=== PATIENT | male | born 1980 | race Caucasian/White ===

== ENCOUNTER 2025-06-18 06:58 | Day surgery (SDC) | payer OTHER, SELFPAY ==
[2025-06-18] VITALS (12 sets, daily range): BP systolic 128–148; BP diastolic 81–103; PULSE 50–78; RESP 12–16; TEMP 36.2–37; O2SAT 95–100; BMI 25.0
[2025-06-18] MEDS: LACTATED RINGERS 1000 ML 1,000 ML 35 ML IV (08:01)
[2025-06-18] MEDS: SODIUM CHLORIDE 0.9 % (FLUSH) 10 ML SYRINGE IVF (08:01)
[2025-06-18] MEDS: BUPIVACAINE 0.5%/EPINEPHRINE 0.9 MG (30.9 ML) INJECTION (08:19)
[2025-06-18] MEDS: MUPIROCIN 1 GM PACKET 1 APPLIC TOPICAL (08:34)
[2025-06-18] MEDS: AYR SALINE NASAL GEL 1 APPLIC NOSTRIL-B (08:40)
--- NOTE | 2025-06-18 08:56 | P.ANES_ITS ---
Anesthesia Charges Start Date/Time Anesthesia Start Date: 06/18/25 Anesthesia Start Time: 08:02 Stop Date/Time Anesthesia Stop Date: 06/18/25 Anesthesia Stop Time: 08:57 Coding CPT Codes CPT Codes: ANESTH NOSE/SINUS SURGERY - 23062 ([id number]) P1 - NORMAL HEALTHY PATIENT, QK - YACHT MASTER 2-4 CNCRNT ANES PROC, QX - DUMP GRADER SVZenaida W/ MED DIRECTION
--- NOTE | 2025-06-18 08:56 | W.ANESCHARGE ---
Anesthesia Charges Start Date/Time Anesthesia Start Date: 06/18/25 Anesthesia Start Time: 08:02 Stop Date/Time Anesthesia Stop Date: 06/18/25 Anesthesia Stop Time: 08:57 Coding CPT Codes CPT Codes: ANESTH NOSE/SINUS SURGERY - 04331 ([id number]) P1 - NORMAL HEALTHY PATIENT, QK - MANAGER INDUSTRIAL 2-4 CNCRNT ANES PROC, QX - DIRECTOR OF PLACEMENT SVZenaida W/ MED DIRECTION
--- NOTE | 2025-06-18 09:51 | P.ENTPROC_ITS ---
Procedure Note Date of procedure: 06/18/25 Procedure: Preop diagnosis deviated septum nasal obstruction inferior turbinate hypertrophy, hypertrophic uvula Postop diagnosis same Procedure nasal septoplasty, submucous partial resection inferior turbinates, partial uvulectomy Under general trach anesthesia patient was prepped draped usual fashion nose decongested injected. The McIvor mouth gag was inserted the tongue retracted forward. The uvula was marked was markedly thickened and enlarged. The membranous portion was removed with needlepoint cautery. No sutures were placed. After regarding an gloving attention was turned to the nose. A right hemitransfixion incision was made. Bilateral anterior posterior tunnels were created. A vertical incision was made through the cartilage just anterior to the bone in the posterior deflected portions of septal bone resected. A nteriorly no resection was performed the septum was simply moved to midline. There is a left premaxillary bony spur that was removed with a bone rongeur. A large piece of cartilage in bone was trimmed and returned to intraseptal space. The hemitransfixion was closed with 2 4-0 chromic sutures A stab incision was made in the anterior head of the right inferior turbinate a tunnel created with a Luz dissector. The megan bone was outfractured and a conservative anterior submucous resection was performed. The Coblation was used for hemostasis and to cauterize intramurally along the inferior 10%. This was repeated the left side in identical fashion. Silastic stents were then secured is side the septum with 3-0 nylon suture. Do Merocel packing coated in Bactroban was placed in the nose on each side above the stents. The patient procedure was taken recovery in satisfactory condition. Blood loss was 10 mL. Surgeon: Srinivas Muñoz MD
--- NOTE | 2025-06-18 09:55 | P.ANES_ITS ---
Anesthesia Charges Start Date/Time Anesthesia Start Date: 06/18/25 Anesthesia Start Time: 08:02 Stop Date/Time Anesthesia Stop Date: 06/18/25 Anesthesia Stop Time: 08:57 Coding CPT Codes CPT Codes: ANESTH NOSE/SINUS SURGERY - 48952 ([id number]) QK - INSURANCE OFFICE MANAGER 2-4 CNCRNT ANES PROC, QX - SPRING FORGER SVC W/ MD MED DIRECTION, P1 - NORMAL HEALTHY PATIENT
--- NOTE | 2025-06-18 09:55 | W.ANESCHARGE ---
Anesthesia Charges Start Date/Time Anesthesia Start Date: 06/18/25 Anesthesia Start Time: 08:02 Stop Date/Time Anesthesia Stop Date: 06/18/25 Anesthesia Stop Time: 08:57 Coding CPT Codes CPT Codes: ANESTH NOSE/SINUS SURGERY - 64780 ([id number]) QK - PRACTICE ASSISTANT 2-4 CNCRNT ANES PROC, QX - CROP SCOUT SVC W/ MD MED DIRECTION, P1 - NORMAL HEALTHY PATIENT
== END 2025-06-18 10:35 | disposition home or self-care (01) ==
LOC: OR 07:01
PROVIDERS: Visit Provider Otolaryngology
PROC: (CPT 30520; principal; 2025-06-18 08:00)
DX: J34.2 Deviated nasal septum (principal); J34.3 Hypertrophy of nasal turbinates; K13.79 Other lesions of oral mucosa; J34.89 Other specified disorders of nose and nasal sinuses
CPT/HCPCS: 30520; 30140; 42140; 00160; A9270; J0330; J1100; J2250; J2405; J2704; J2710; J3010; J7120